=== PATIENT | male | born 1995 | race Caucasian/White ===

== ENCOUNTER 2016-06-28 17:59 | Emergency (ER) | payer OTHER ==
[~2016-06-28] VITALS: Ht 175.3 cm; Wt 67.7 kg
[2016-06-28 18:33] VITALS: TEMP 37; Ht 175.3 cm; Wt 67.7 kg
[2016-06-28] MEDS ORDERED: RABIES VACCINE (IMOVAX) HUMAN DIPL CELL 2.5 INTER.UNIT/ML SYR IM. ONE (19:30)
[2016-06-28] MEDS ORDERED: DIPHTHERIA/TETANUS/PERTUSSIS 0.5 ML SYR/VIAL IM. ONE (19:30)
[2016-06-28] MEDS ORDERED: RABIES IMMUNE GLOBULIN (HUMAN) 150 INTER.UNIT/ML 2 ML VIAL IM. ONE (19:30)
[2016-06-28 20:40] VITALS: BP 126/71; PULSE 67; O2SAT 96
--- NOTE | 2016-06-29 20:47 | EMERGENCY ROOM VISIT NOTE ---
ED Visit Note First contact with patient: 19:10 Chief Complaint: Cat bite. History of Present Illness: Mr. Alonso is a 20-year-old white male who ambulates into the ED accompanied by female friend complaining of a cat bite and cat scratch on his left hand. Patient reports he was out running approximately 2-3 hours ago and saw a small cat in front of him. Someone had just finished petting the cat and he stopped and tried to put the cat and was bitten and scratched. The cat then ran away and could not be found. He reports when he arrived home he washed the area with soap and water and went to be seen at [facility]. He was referred to the ED for rabies immunization. Currently patient has no complaints and denies any pain or other symptoms in the area of his wounds. He denies any hand weakness/numbness/tingling. Review of Systems: As noted above in history of present illness. Past Medical History: Patient denies. Current Medications: Patient denies. Allergies to Medications: Patient denies. Social History: Patient is currently in University student; he feels safe in his home environment; he denies tobacco use; he admits to alcohol use. Tetanus Immunization Status: 2007. Physical Examination: Vital Signs: Date Time Temp Pulse Resp B/P Pulse Ox O2 Delivery O2 Flow Rate FiO2 06/28/16 20:40 67 18 126/71 96 06/28/16 18:33 37.0 79 18 122/64 97 Room Air GENERAL: 20-year-old male in no acute distress, nontoxic-appearing, afebrile and hemodynamically stable. NEUROLOGICAL: Awake, alert and oriented to person, place and time. Answering questions appropriately and following commands. Good hand eye coordination. No focal motor or sensory deficits. SKIN: Warm, dry and pink. Over the posterior aspect of the hand and in the webspace between the thumb and index finger patient has 2 superficial scratches and 2 puncture wounds. There is no local bleeding. There is no local signs of infection. LEFT HAND: Soft tissue injuries as noted above under SKIN. No gross bony deformity. No tenderness throughout the wrist, hand or fingers. Full range of motion against resistance of the wrist, thumb and index finger. Throughout the hand the skin was warm and pink and capillary refill is brisk. He was able to distinguish light sensations through all dermatomes. ED Course: Patient is assessed as noted above. Patient was given an Adacel DTaP booster IM, 2.5 interunits of rabies vaccination IM and 1355 interunits of rabies immunoglobulin IM. Patient was educated about tonight's findings and instructed on his treatment plan; he verbalizes understanding and agreement with this plan. Clinical Impression: Cat bite and scratch. Rabies prophylaxis. Disposition: Patient discharged home in stable condition; prior to departure he was reassessed and subjectively reported he was pain and symptom-free. Plan: Patient was educated on wound care, signs of infection, comfort measures, mild- to-moderate side effects of his immunizations. Patient is encouraged to follow-up with the primary care provider for mild side effects of his vaccinations. Patient was encouraged return the ED for moderate to severe reactions from his immunizations. Patient was encouraged to return July 01, July 05 and July 12 for additional rabies vaccinations. Patient was encouraged return the ED for signs of infection or any new/ concerning symptoms.
== END 2016-06-28 20:41 | disposition home or self-care (01) ==
LOC: C.EDB 18:01 → EDBD 18:01 → C.EDD 20:41
DX: S61.452A Open bite of left hand, initial encounter (principal); S60.512A Abrasion of left hand, initial encounter; W55.01XA Bitten by cat, initial encounter; Z23 Encounter for immunization; Z20.3 Contact with and (suspected) exposure to rabies